=== PATIENT | male | born 1960 | race Caucasian/White ===

== ENCOUNTER → 2016-10-01 | Outpatient (CLI) | payer OTHER ==
--- NOTE | 2016-10-01 13:37 | US ---
EXAMINATION TYPE: US carotid duplex BILAT DATE OF EXAM: 10/01/2016 COMPARISON: NONE CLINICAL HISTORY: F80.9 Developmental disorder of speech and language. bruit EXAM MEASUREMENTS: RIGHT: Peak Systolic Velocity (PSV) cm/sec ----- Right CCA: 66.0 ----- Right ICA: 85.3 ----- Right ECA: 118.3 ICA/CCA ratio: 1.3 RIGHT: End Diastole cm/sec ----- Right CCA: 18.8 ----- Right ICA: 29.2 ----- Right ECA: 11.1 LEFT: Peak Systolic Velocity (PSV) cm/sec ----- Left CCA: 73.8 ----- Left ICA: 97.8 ----- Left ECA: 95.2 ICA/CCA ratio: 1.3 LEFT: End Diastole cm/sec ----- Left CCA: 18.8 ----- Left ICA: 37.0 ----- Left ECA: 18.2 VERTEBRALS (direction of flow): Right Vertebral: Antegrade Left Vertebral: Antegrade 1. Bilateral wall thickening. 2. No elevated velocities. 3. No significant stenosis. IMPRESSION: Minimal calcific atheromatous plaquing within the bilateral carotid bulbs. No evidence o f hemodynamically significant stenosis.
== END | disposition home or self-care (01) ==
LOC: RADUSWWP 12:47
PROVIDERS: ATTEND Internal Medicine
DX: I65.23 Occlusion and stenosis of bilateral carotid arteries (principal)
CPT/HCPCS: 93880

== ENCOUNTER → 2017-06-24 | Outpatient (CLI) | payer OTHER ==
[2017-06-24 12:19] VITALS: BP 201/112; PULSE 84; RESP 16
--- NOTE | 2017-06-24 12:43 | P.CONS ---
History of Present Illness - Reason for Consult Consult date: 06/24/17 - Chief Complaint Lower back pain - History of Present Illness This is a 56-year-old male with a recent history of lower back pain that started with no precipitating event. The pain is mostly on the left side of his lower back and goes to the left hip area. The patient denies any numbness or tingling in the lower extremities also denies any bowel or bladder dysfunction or any weakness in the lower extremities. This pain occasionally wakes him up at night. The pain is not constant and it fluctuates with intensity depending on the activities that he does. This pain gets worse with lifting and walking for too long. Sitting down or lying down in bed helps this pain. The patient has a lot stress at home because he takes care of his autistic son. He smokes one pack and a half of cigarettes a day and he denies using any alcohol or drugs. His lumbar spine MRI that was done in April showed a disc herniation at the L4 5 level with hypertrophic changes of the posterior facets with lumbar stenosis at this level. Review of Systems Constitutional: Denies as per HPI, Denies anorexia, Denies chills, Denies chronic headaches, Denies chronic pain, Denies daytime sleepiness, Denies fatigue, Denies fever, Denies lethargy, Denies malaise, Denies night sweats, Denies poor appetite, Denies sweats, Denies weakness, Denies weight gain, Denies weight loss Ears, nose, mouth and throat: Denies as per HPI, Denies ant. neck pain, Denies bleeding gums, Denies dental pain, Denies dysphagia, Denies epistaxis, Denies headache, Denies hoarseness, Denies mouth pain, Denies nasal congestion, Denies nasal discharge, Denies neck fullness/pressure, Denies neck lump, Denies nose pain, Denies odynophagia, Denies post-nasal drip, Denies sinus pain, Denies sinus pressure, Denies swelling in mouth, Denies swelling in throat, Denies sore throat, Denies vertigo, Denies voice changes Cardiovascular: Denies as per HPI, Denies chest pain, Denies claudication, Denies decreased exercise tolerance, Denies dyspnea on exertion, Denies edema, Denies high blood pressure, Denies irregular heart beat, Denies leg edema, Denies lightheadedness, Denies orthopnea, Denies palpitations, Denies paroxysmal nocturnal dyspnea, Denies phlebitis, Denies rapid heart beat, Denies shortness of breath, Denies syncope Respiratory: Denies as per HPI, Denies congestion, Denies cough, Denies cough with sputum, Denies dyspnea, Denies excessive sputum, Denies hemoptysis, Denies home oxygen, Denies pain, Denies pain on inspiration, Denies pleurisy, Denies respiratory infections, Denies sleep apnea, Denies snoring, Denies wheezing Gastrointestinal: Denies as per HPI, Denies abdominal pain, Denies belching, Denies bloating, Denies BRBPR, Denies change in bowel habits, Denies coffee ground emesis, Denies constipation, Denies diarrhea, Denies dyspepsia, Denies early satiety, Denies excessive gas, Denies heartburn, Denies hematemesis, Denies hematochezia, Denies indigestion, Denies jaundice, Denies lactose intolerance, Denies loss of appetite, Denies melena, Denies nausea, Denies vomiting Musculoskeletal: Reports as per HPI Neurological: Reports as per HPI Past Medical History Past Medical History: Hyperlipidemia, Hypertension Additional Past Medical History / Comment(s): gout History of Any Multi-Drug Resistant Organisms: None Reported Past Surgical History: Appendectomy Additional Past Surgical History / Comment(s): fx right ankle with ORIF and right orbital fx Past Anesthesia/Blood Transfusion Reactions: No Reported Reaction Past Psychological History: No Psychological Hx Reported Smoking Status: Current every day smoker Past Alcohol Use History: Daily Past Drug Use History: None Reported - Past Family History Father Family Medical History: Diabetes Mellitus Mother Family Medical History: Cancer Additional Family Medical History / Comment(s): orbital bone ca Medications and Allergies Home Medications Medication Instructions Recorded Confirmed Type Allopurinol [Zyloprim] 100 mg PO DAILY 06/24/17 06/24/17 History Atorvastatin [Lipitor] 20 mg PO DAILY 06/24/17 06/24/17 History Ibuprofen 800 mg PO BID 06/24/17 06/24/17 History Losartan Potassium 100 mg PO DAILY 06/24/17 06/24/17 History Allergies Allergy/AdvReac Type Severity Reaction Status Date / Time No Known Allergies Allergy Verified 06/24/17 12:05 Physical Exam Vitals: Vital Signs Pulse Resp BP Pulse Ox 06/24/17 12:09 84 16 201/112 97 Intake and Output 06/23/17 06/24/17 06/24/17 22:59 06:59 14:59 Other: Weight 86.183 kg - Constitutional General appearance: average body habitus - EENT Eyes: PERRLA - Respiratory Respiratory: bilateral: CTA - Cardiovascular Rhythm: regular - Neurologic Neurologic: CNII-XII intact - Musculoskeletal Musculoskeletal: gait normal - Psychiatric Psychiatric: A&O x's 3, appropriate affect, intact judgment & insight (Neuro exam of the lower extremities showed normal and symmetrical muscle strength but absent deep tendon reflexes bilaterally. Straight leg raising test negative bilaterally. Porfirio's test negative on the left side and internal and external rotation of the left hip joint did not elicit any pain. Facet loading test is mildly positive.) Assessment and Plan Plan: This is a 56-year-old male with recent history of lower back pain and left hip pain. The physical exam does not show any neurologic changes in the lower extremities. He does have lumbar disc herniation at the L4 5 level on the lumbar MRI and mild lumbar stenosis. His pain has improved significantly since it started last January. At this point I think we can send the patient to have physical therapy and we can see him on an as-needed basis. If his pain gets out of control then we will plan on doing lumbar epidural steroid injection under fluoroscopic guidance at the L4 5 level in the left paramedian approach. The patient was encouraged to quit smoking. He is to continue using ibuprofen as needed for his back pain as long as he does not get any side effects from it. The patient also needs to have a better control of his blood pressure. Thank you for the consultation
== END | disposition home or self-care (01) ==
LOC: PNWHC3 11:38
PROVIDERS: ATTEND Anesthesiology
DX: M48.061 Spinal stenosis, lumbar region without neurogenic claudication (principal); M51.26 Other intervertebral disc displacement, lumbar region; F17.210 Nicotine dependence, cigarettes, uncomplicated; E78.5 Hyperlipidemia, unspecified; I10 Essential (primary) hypertension; M10.9 Gout, unspecified; Z79.1 Long term (current) use of non-steroidal anti-inflammatories (NSAID); Z79.899 Other long term (current) drug therapy
CPT/HCPCS: 99211